=== PATIENT | female | born 1975 | race Two or more races ===

== ENCOUNTER 2024-08-17 12:24 | Emergency (ER) | payer SELFPAY ==
[2024-08-17 12:40] VITALS: BP 163/101; PULSE 102; TEMP 36.8; O2SAT 98; BMI 38.6
[2024-08-17 13:14] LABS: Basophils Percent Auto 0.5 % (0.2-2.0); Eosinophils Absolute Auto 0.2 10^3/uL (0.0-0.7); Eosinophils Percent Auto 3.3 % (0.9-7.0); Hematocrit 37.8 % (36.0-48.0); Hemoglobin 12.5 g/dL (12.0-16.0); Immature Granulocytes Abs Auto 0.03 10^3/uL (0.00-0.03); Immature Granulocytes Pct Auto 0.5 % (0.0-0.5); Lymphocytes Absolute Auto 1.7 10^3/uL (1.2-3.8); Lymphocytes Percent Auto 31.3 % (20.5-60.0); Mean Corpuscular HGB Conc 33.1 g/dL (29.9-35.2); Mean Corpuscular Hemoglobin 27.8 pg (26.7-34.0); Mean Platelet Volume 10.8 fL (9.5-13.5); Monocytes Absolute Auto 0.7 10^3/uL (0.3-0.8); Monocytes Percent Auto 12.4 % (1.7-12.0); Neutrophils Absolute Auto 2.9 10^3/uL (1.4-6.5); Platelet Count 212 10^3/uL (150-450); White Blood Count 5.5 10^3/uL (4.0-11.0)
[2024-08-17 13:32] LABS: Alanine Aminotransferase 56 U/L (14-59); Albumin Globulin Ratio 0.9; Albumin Level 3.6 g/dL (3.4-5.0); Alkaline Phosphatase 107 U/L (46-116); Aspartate Amino Transferase 41 U/L (15-37); BUN Creatinine Ratio 21.6; Bilirubin Total 0.2 mg/dL (0.2-1.0); Calcium 9.2 mg/dL (8.5-10.1); Carbon Dioxide 27.5 mmol/L (21.0-32.0); Chloride 99 mmol/L (98-107); Estimated GFR (African America >60 (>=60 mL/min/1.73m^2); Estimated GFR (Non-African Ame >60 (>=60 mL/min/1.73m^2); Globulin 4.2 g/dL; Glucose 284 mg/dL (74-106); Potassium 3.5 mmol/L (3.5-5.1); Sodium 134 mmol/L (136-145); Total Protein 7.8 g/dL (6.4-8.2)
[2024-08-17 13:34] LABS: HCG Qualitative NEGATIVE (NEGATIVE); Internal Control Within Normal Limits
--- NOTE | 2024-08-17 13:51 | ED_ITS ---
HPI - General Chief complaint: OB/Uterine Contractions Stated complaint: POSSIBLE CIRVICAL BLEEDING Time Seen by Provider: 08/17/24 12:54 Source: patient and family Source comment: Daughter interpreting for the patient. Mode of arrival: walk-in History of Present Illness HPI Narrative: The patient is a 48 years old who just had a cervical polyp removed almost 3 days ago and her [facility] [employer] office, the patient mentioned that she started bleeding next day and also having some suprapubic cramping, she contacted her [employer] [employer] doctor and they told her to come to the nearest ER Patient denies any dizziness any shortness of breath She changed 3 pads today and yesterday she changed 4 pads Related Data Home Medications ?Medication ?Instructions ?Recorded ?Confirmed hydrochlorothiazide 25 mg tablet mg 08/17/24 lisinopril 40 mg tablet mg 08/17/24 metformin 500 mg tablet mg 08/17/24 Allergies Allergy/AdvReac Type Severity Reaction Status Date / Time Sulfa (Sulfonamide Allergy Rash Verified 08/17/24 12:39 Antibiotics) Review of Systems ROS Status of ROS 10 or more systems reviewed and unremark able except as noted in history and below PFSH PFSH Social History Little interest or pleasure in doing things: not at all Feeling down, depressed, or hopeless: not at all Exam Narrative Exam Narrative: Nurses notes and vital signs reviewed and patient is not hypoxic. General: Well-appearing and in no apparent distress. Skin: Warm, dry, no pallor noted. No rash. Head: Normocephalic, atraumatic. Neck: Supple, non-tender. Cardiovascular: Regular Rate and Rhythm without murmur, gallop or rub. Respiratory: No accessory muscle use or respiratory distress. Lungs are clear to auscultation, no wheezing, rales or rhonchi GI: Abdomen is soft, non-distended. Normal bowel sounds. No masses appreciated. No tenderness to palpation. No rebound, guarding, or rigidity noted. Cervical examination: Showed that the patient have dripping of blood on examination with some blood clot at the cervix, no lesions and no rash Constitutional Vital Signs, click to edit/add: Last Vital Signs Temp 98.2 F 08/17/24 12:40 Pulse 86 08/17/24 14:11 Resp 14 08/17/24 14:11 BP 139/89 08/17/24 14:11 Pulse Ox 98 08/17/24 14:11 O2 Del Method Room Air 08/17/24 14:11 Course Vital Signs Vital signs: Vital Signs Temperature 98.2 F 08/17/24 12:40 Pulse Rate 102 H 08/17/24 12:40 Respiratory Rate 18 08/17/24 12:40 Blood Pressure 163/101 H 08/17/24 12:40 Pulse Oximetry 98 08/17/24 12:40 Oxygen Delivery Method Room Air 08/17/24 12:40 Temperature 98.2 F 08/17/24 12:40 Pulse Rate 86 08/17/24 14:11 Respiratory Rate 14 08/17/24 14:11 Blood Pressure 139/89 08/17/24 14:11 Pulse Oximetry 98 08/17/24 14:11 Oxygen Delivery Method Room Air 08/17/24 14:11 MDM - OB/Uterine Contractions MDM Narrative Medical decision making narrative: The patient was vital stable in the ER she was not tachycardic or hypotensive at any time Her hemoglobin was 12.5 on blood workup The patient case was discussed with Dr. Lei from [facility] and the plan was to send the patient right away from here to there in a private car to control the bleeding in the office Right now the patient is stable and she was instructed about driving right away over there for evaluation and controlling the bleeding that is minimal Lab Data Labs: Lab Results 08/17/24 Range/Units 13:07 WBC 5.5 (4.0-11.0) 10^3/uL RBC 4.50 (4.20-5.40) 10^6/uL Hgb 12.5 (12.0-16.0) g/dL Hct 37.8 (36.0-48.0) % MCV 84.0 (81.0-99.0) fL MCH 27.8 (26.7-34.0) pg MCHC 33.1 (29.9-35.2) g/dL RDW 14.0 (11.0-15.0) % Plt Count 212 (150-450) 10^3/uL MPV 10.8 (9.5-13.5) fL Neut % (Auto) 52.0 (43.0-75.0) % Lymph % (Auto) 31.3 (20.5-60.0) % Bureau % (Auto) 12.4 H (1.7-12.0) % Eos % (Auto) 3.3 (0.9-7.0) % Baso % (Auto) 0.5 (0.2-2.0) % Neut # (Auto) 2.9 (1.4-6.5) 10^3/uL Lymph # (Auto) 1.7 (1.2-3.8) 10^3/uL Bureau # (Auto) 0.7 (0.3-0.8) 10^3/uL Eos # (Auto) 0.2 (0.0-0.7) 10^3/uL Baso # (Auto) 0.0 (0.0-0.1) 10^3/uL Abs Immat Gran (auto) 0.03 (0.00-0.03) 10^3/uL Imm/Tot Granulo (auto) 0.5 (0.0-0.5) % Sodium 134 L (136-145) mmol/L Potassium 3.5 (3.5-5.1) mmol/L Chloride 99 (98-107) mmol/L Carbon Dioxide 27.5 (21.0-32.0) mmol/L Anion Gap 11.0 BUN 16.0 (7.0-18.0) mg/dL Creatinine 0.74 (0.55-1.02) mg/dL Est GFR ( Amer) >60 (>=60 mL/min/1.73m^2) Est GFR (Non-Af Amer) >60 (>=60 mL/min/1.73m^2) BUN/Creatinine Ratio 21.6 Glucose 284 H (74-106) mg/dL Calcium 9.2 (8.5-10.1) mg/dL Total Bilirubin 0.2 (0.2-1.0) mg/dL AST 41 H (15-37) U/L ALT 56 (14-59) U/L Alkaline Phosphatase 107 (46-116) U/L Total Protein 7.8 (6.4-8.2) g/dL Albumin 3.6 (3.4-5.0) g/dL Globulin 4.2 g/dL Albumin/Globulin Ratio 0.9 Serum HCG, Qual Negative (NEGATIVE) Blood Type A Positive Antibody Screen Negative Discharge Plan Discharge Chief Complaint: OB/Uterine Contractions Clinical Impression: Bleeding of cervix Patient Disposition: Home, Self-Care Time of Disposition Decision: 13:52 Condition: Good Prescriptions / Home Meds: No Action metformin 500 mg tablet hydrochlorothiazide 25 mg tablet lisinopril 40 mg tablet Print Language: Occitan Instructions: Abnormal (Dysfunctional) Uterine Bleeding (ED) Referrals: Dr Lei [Other] - As soon as possible (please drive over to there now ) [facility] [Primary Care Provider] - 1 week Discharge Date/Time: 08/17/24 14:15
[2024-08-17 14:11] VITALS: BP 139/89; PULSE 86; O2SAT 98
== END 2024-08-17 14:15 | disposition home or self-care (01) ==
PROVIDERS: Emergency Provider Emergency Medicine
DX: N93.9 Abnormal uterine and vaginal bleeding, unspecified (principal); Z98.890 Other specified postprocedural states
CPT/HCPCS: 36415; 80053; 84703; 85025; 86850; 86900; 86901; 99284